=== PATIENT | male | born 1990 | race African-American/Black ===

== ENCOUNTER 2020-06-23 12:52 | Outpatient (CLI) ==
--- NOTE | 2020-06-23 13:27 | RAD ---
XR Chest Pa Lat STANDARD HISTORY: Encounter for screening for S. Tuberculosis COMPARISON: 05/22/2050 FINDINGS: The heart size is normal. The lungs are well expanded without focal areas of consolidation, pneumothorax or pleural effusions. The bony thorax is normal. IMPRESSION: Normal exam. No radiographic evidence of active pulmonary tuberculosis
== END 2020-06-23 12:53 | disposition home or self-care (01) ==
LOC: SCSRAD 12:52
PROVIDERS: ATTEND Family Medicine
DX: Z11.1 Encounter for screening for respiratory tuberculosis (principal)
CPT/HCPCS: 71046